=== PATIENT | female | born 1980 | race Caucasian/White ===

== ENCOUNTER → 2024-01-16 16:26 | Outpatient (REF) | payer BC, SELFPAY | LOC: RAD 16:26 | PROVIDERS: ATTENDING PHYSICIAN Student in an Organized Health Care Education/Training Program; FAMILY PHYSICIAN Family Medicine | DX: R10.2 Pelvic and perineal pain (principal) | CPT/HCPCS: 76830; 76856 ==

== ENCOUNTER 2024-03-30 17:08 | Emergency (ER) | payer BC, SELFPAY ==
[2024-03-30 17:21] VITALS: BP 134/95
--- NOTE | 2024-03-30 17:21 | ED.GENMED ---
ED Provider Triage
<Susan Copeland PA-C - Last Filed: 03/31/24 11:36>
-
Patient seen by provider in Triage?: Seen in Triage
Attestation: A medical screening examination has been initiated by a qualified medical provider. Based on the assessment performed at this time, it has been determined that an emergent medical condition may exist and the patient has been informed
that further medical evaluation and possible additional diagnostic testing may be needed.
HPI: 43yoF here with URI symptoms since . On doxycycline x 6 days without improvement. C/o fever and elevated heart rate. Seen at urgent care again today and sent to the ED to r/o PE.
GENERAL: Alert , in no apparent distress
EYE: No visual abnormalities.
NECK: Trachea midline
ENT: No visible abnormalities.
LUNGS: No acute respiratory distress
NEUROLOGICAL: Alert and oriented
SKIN: Skin intact. No visible changes.
MUSCULOSKELETAL: Moving extremities normally
PSYCH: Normal and appropriate interaction.
This is a medical evaluation conducted in person to initiate diagnostic evaluation and provide initial therapeutics. Please see further documentation by the treating clinician.
Cardiac labs, D-dimer, EKG, and viral testing ordered.
History of Present Illness
<Susan Copeland PA-C - Last Filed: 03/31/24 11:36>
General
Chief Complaint: Breathing Problem
Time Seen by Provider: 03/30/24 19:59
<Kalani Linda PA-C - Last Filed: 04/02/24 07:54>
General
Source: patient
Exam Limitations: none
Nursing documentation reviewed up to this point in time: agreed with
History of Present Illness
History of Present Illness:
PT IS A 43 Y/O F with h/o usually low bp and low resting HR
here with not feeling well with cold symptoms x 2 weeks
started with nasal congestion, sroe throat, cough and the cough ws productive and now just the cough was lingering and mostly dry with not feeling wlel; she went to on 03/25 and got doxycycline
had CXR which showed bonrhcitis
she also was given albuteorl inhaler and tessalon perles
pt was also taking mucinex
she stopped th emucinex and tessalon 2 days ago but last used the albuterol at 4 am today and has been taking the doxy and idn't feel better
this morning she woke up in cold sweat and then vomited later on in the day x 1
she wan't sure if it was the abx but went back to to get checked out
her bp was 130/90s which is very high for her and her hr is 100s; so they sent her for R/O PE.
Past History
<Kalani Linda PA-C - Last Filed: 04/02/24 07:54>
Past History
ED Past Medical History: None
ED Past Surgical History: None
Social History
Tobacco: Non-smoker
Alcohol: None
Drug: None
Personal:
Living: with family
Review of Systems
<JON Moeller Last Filed: 04/02/24 07:54>
Review of Systems
Allergies reviewed?: Yes
All Other Systems: Not applicable
Phy Exam
<JON Moeller Last Filed: 04/02/24 07:54>
Physical Exam
Physical Exam:
GENERAL: Alert , in no apparent distress
EYE: pupils equal and reactive
NECK: Supple
ENT: b/l TM s clear, pharynx erythematous but no tonsillar hypertrophy or exudates
CARDIAC: Regular rate and rhythm, no edema
LUNGS: Clear breath sounds bilaterally, no acute respiratory distress, no wheezes/rales/rhonchi, occ cough
ABDOMEN: Soft, without focal tenderness, no r/g, no cvat, normal bowel sounds
NEUROLOGICAL: Alert and oriented, no focal neuro deficits
SKIN: Warm and dry, skin intact.
MUSCULOSKELETAL: No edema, well perfused.
PSYCH: Normal and appropriate interaction.
Course
<Susan Copeland PA-C - Last Filed: 03/31/24 11:36>
Orders/Labs/Results
Orders:
Orders
03/30/24 17:26
Electrocardiogram (*1) Urgent
Reason for Study: Shortness of Breath
EKG- Treatment ONCE
03/30/24 17:27
Test Result ONCE
03/30/24 17:40
COVID-19 Antigen Urgent
Source: Nasal Swab
Complete Blood Count/With Diff Urgent
Comprehensive Metabolic Panel Urgent
D-Dimer Urgent
HCG, Serum Qualitative Screen Urgent
Troponin I Urgent
Influenza A+B Rapid Molecular Urgent
ROSALINE Source: Nasal Swab
Specimen Description:
03/30/24 20:03
CT Chest PE Study Urgent
Comment:
Reason For Exam: ELEVATED D DIMER, COLD SYMPTOMS
03/30/24 20:14
Respiratory Syncytial Virus Urgent
ROSALINE Source: Nasal Swab
Specimen Description:
Date Specimen was Collected: 03/30/24
Time Specimen was Collected: 20:02
0.9% Sodium Chloride 1000 ml [Nss] 1,000 ml IV BOLUS
Abnormal Lab Results
03/30/24
17:40
D-Dimer 0.52 H ug/mlFEU
(0.00-0.50)
Sodium 133 L mmol/L
(135-145)
Creatinine 0.5 L mg/dL
(0.6-1.0)
Glucose 116 H mg/dl
(70-99)
03/30/24 17:40
03/30/24 17:40
Vital Signs
Initial and Last Documented VS:
Initial Vital Signs
Temp Pulse Resp BP Pulse Ox
36.8 C 84 18 134/95 99
03/30/24 17:21 03/30/24 17:21 03/30/24 17:21 03/30/24 17:21 03/30/24 17:21
Last Documented Vital Signs
Temp Pulse Resp BP Pulse Ox
36.8 C 73 11 114/73 98
03/30/24 17:21 03/30/24 22:53 03/30/24 22:53 03/30/24 22:53 03/30/24 23:05
<Kalani Linda PA-C - Last Filed: 04/02/24 07:54>
Orders/Labs/Results
Orders:
Orders
03/30/24 17:26
Electrocardiogram (*1) Urgent
Reason for Study: Shortness of Breath
EKG- Treatment ONCE
03/30/24 17:27
Test Result ONCE
03/30/24 17:40
COVID-19 Antigen Urgent
Source: Nasal Swab
Complete Blood Count/With Diff Urgent
Comprehensive Metabolic Panel Urgent
D-Dimer Urgent
HCG, Serum Qualitative Screen Urgent
Troponin I Urgent
Influenza A+B Rapid Molecular Urgent
ROSALINE Source: Nasal Swab
Specimen Description:
03/30/24 20:03
CT Chest PE Study Urgent
Comment:
Reason For Exam: ELEVATED D DIMER, COLD SYMPTOMS
03/30/24 20:14
Respiratory Syncytial Virus Urgent
ROSALINE Source: Nasal Swab
Specimen Description:
Date Specimen was Collected: 03/30/24
Time Specimen was Collected: 20:02
0.9% Sodium Chloride 1000 ml [Nss] 1,000 ml IV BOLUS
Abnormal Lab Results
03/30/24
17:40
D-Dimer 0.52 H ug/mlFEU
(0.00-0.50)
Sodium 133 L mmol/L
(135-145)
Creatinine 0.5 L mg/dL
(0.6-1.0)
Glucose 116 H mg/dl
(70-99)
03/30/24 17:40
03/30/24 17:40
Vital Signs
Initial and Last Documented VS:
Initial Vital Signs
Temp Pulse Resp BP Pulse Ox
36.8 C 84 18 134/95 99
03/30/24 17:21 03/30/24 17:21 03/30/24 17:21 03/30/24 17:21 03/30/24 17:21
Last Documented Vital Signs
Temp Pulse Resp BP Pulse Ox
36.8 C 73 11 114/73 98
03/30/24 17:21 03/30/24 22:53 03/30/24 22:53 03/30/24 22:53 03/30/24 23:05
<Kalani Linda PA-C - Last Filed: 04/02/24 07:54>
MDM/Problems Addressed
Differential Diagnosis Includes:
PE, bronchitis, viral syndrome, pneumonia, sinusitis
MDM/Problems Addressed:
43 y/ oF
2 weeks URI sxs
on abx day 6 doxy from , neg cxr
felt inc sob x 3 days
sent by for r/o PE
pt has not had vomiting/diarrhea
she is using iinhaler for cough hwhich helps
but she feels her HR racing and her BP is elevated
no exertional CP
ekg nonischemic
was intiially mildly tachy and down to 90s HR
bp 130/80s
lungs clear
no resp distress
speaking full sentences
d d hunter is elevated to proceded with CT
ct was neg for PE and pna
RSV pos
pt may continue the abx if she would like but likely viral bronchitis
offered steroids which she declnied
<Kalani Linda PA-C - Last Filed: 04/02/24 07:54>
*Critical Care Note
Total Time (30-74mins, 75-104mins- exclusive of procedures): Not Applicable
ED Attending Note
<Susan Copeland PA-C - Last Filed: 03/31/24 11:36>
-
Portions of this chart may have been created with voice recognition software.� Occasional wrong word or��sound alike� substitutions may have occurred due to the inherent limitations of voice recognition software.
Discharge Plan
Departure
Patient Disposition: Home (Routine Discharge)
Date of Disposition: 03/30/24
Time of Disposition: 22:38
Patient with high blood pressure during this ER visit?: No
Condition: Fair
Covid-19: Negative COVID-19
Discharge Problem:
Bronchitis
Instructions: Acute Bronchitis, Adult (DC)
Activity Restrictions/Additional Instructions:
YOUR BLOOD WORK WAS REASSURING
YOUR CAT SCAN WAS NEG FOR BLOOD CLOT AND PNEUMONIA
YOU TESTED POSITIVE FOR RSV WHICH IS A VIRUS
YOU CAN CONTINUE THE ANTIBIOTICS BUT THIS WILL TAKE TIME TO RESOLVE
YOU ALSO CAN CONTINUE THE ALBUTEROL, IT MAY RAISE YOUR HEART RATE WHICH IS TYPICAL
FOLLOW UP WITH YOUR DOCTOR IN 1 WEEK
RETURN FOR ANY CONCERNS
Interventions
Interventions:
*Risk Screen - Suicide Last Done: 03/30/24 17:21
*General Assessment Last Done: 03/30/24 17:21
*Neglect/Abuse Screening Last Done: 03/30/24 17:21
ED- Fall Risk Assessment Last Done: 03/30/24 20:31
*ED COVID-19 Vaccine History Last Done: 03/30/24 17:21
*Nursing Disposition Last Done: 03/30/24 23:05
ED- Cardiac Assessment Last Done: 03/30/24 20:31
ED- Pulmonary Assessment Last Done: 03/30/24 20:31
Discharge Date and Time
Discharge Date/Time: 03/30/24 23:07
Print Language: IRISH
[2024-03-30 17:57] LABS: % Basophils 0.4 % (0-2); % Eosinophils 0.5 % (0-6); % Immature Granulocytes 0.3 % (0-0.5); % Lymphocytes 25.7 % (20.5-51.1); % Monocytes 7.2 % (1.7-9.3); % Neutrophils 65.9 % (42.2-75.2); Absolute Lymphocytes 1.9 10^3/uL (1.2-3.4); Absolute Monocytes 0.5 10^3/uL (0.1-0.6); Absolute Neutrophils 4.9 10^3/uL (1.4-6.5); Hematocrit 38.7 % (37.0-47.0); Hemoglobin 13.7 g/dL (12.0-16.0); Mean Corp Hgb Conc. 35.4 g/dL (33.0-37.0); Mean Corpuscular Hgb 30.2 pg (27.0-31.0); Mean Corpuscular Volume 85.2 fL (81.0-99.0); Mean Platelet Volume 10.3 fL (7.4-10.4); Nucleated Red Blood Cells % 0 %; Platelet Count 270 10^3/uL (130-400); Red Blood Cell Count 4.54 10^6/uL (4.20-5.40); Red Cell Dist. Width 11.7 % (11.5-14.5); White Blood Cell Count 7.5 10^3/uL (4.8-10.8)
[2024-03-30 18:09] LABS: HCG, Serum Qualitative Screen Negative
[2024-03-30 18:10] LABS: ALT (SGPT) 16 U/L (0-35); AST (SGOT) 23 U/L (14-36); Albumin 4.5 g/dl (3.5-5.0); Alkaline Phosphatase 50 U/L (38-126); Blood Urea Nitrogen 9 mg/dl (7-17); Calcium 9.4 mg/dl (8.4-10.2); Carbon Dioxide 23 mmol/L (22-30); Chloride 100 mmol/L (98-107); Glucose 116 mg/dl (70-99); Potassium 3.9 mmol/L (3.5-5.1); Sodium 133 mmol/L (135-145); Total Bilirubin 0.5 mg/dl (0.2-1.3); Total Protein 7.1 g/dl (6.3-8.2); eGFR > 60.00
[2024-03-30 18:19] LABS: Troponin I < 0.012 ng/ml
[2024-03-30 18:25] LABS: COVID-19 Antigen Negative (Negative)
[2024-03-30 18:28] LABS: D-Dimer 0.52 ug/mlFEU (0.00-0.50)
[2024-03-30 20:13] VITALS: BP 117/76
[2024-03-30] MEDS: NSS 1000 IV (20:27)
[2024-03-30 20:31] VITALS: BMI 23.5
[2024-03-30 21:00] VITALS: BP 119/73
[2024-03-30 22:25] VITALS: BP 127/63
[2024-03-30 22:53] VITALS: BP 114/73
== END 2024-03-30 23:07 | disposition home or self-care (01) ==
LOC: EMR 17:08
PROVIDERS: Physician Assistant; EMERGENCY PHYSICIAN Emergency Medicine; FAMILY PHYSICIAN Family Medicine
DX: J20.9 Acute bronchitis, unspecified (principal); R11.10 Vomiting, unspecified; R06.02 Shortness of breath; R00.0 Tachycardia, unspecified; R61 Generalized hyperhidrosis; Z11.52 Encounter for screening for COVID-19; R03.0 Elevated blood-pressure reading, without diagnosis of hypertension
CPT/HCPCS: 99284; 96361; 96360; 71275; 80053; 84484; 84703; 85025; 85379; 87502; 87807; 87811; 93005; Q9967

== ENCOUNTER → 2024-09-08 10:04 | Outpatient (REF) | payer BC, SELFPAY | LOC: RAD 10:04 | PROVIDERS: ATTENDING PHYSICIAN Obstetrics & Gynecology; FAMILY PHYSICIAN Family Medicine | DX: N80.9 Endometriosis, unspecified (principal) | CPT/HCPCS: 76830; 76856 ==